=== PATIENT | female | born 1980 | race Caucasian/White ===

== ENCOUNTER 2017-06-14 17:44 | Emergency (ER) | payer OTHER ==
[~2017-06-14] VITALS: Ht 167.6 cm; Wt 59.1 kg
[~2017-06-14 17:44] MED LIST: NUVARING VAGIN1 EACH VG
== END 2017-06-14 20:35 ==
LOC: EDMED 17:44
DX: G43.909 Migraine, unspecified, not intractable, without status migrainosus (principal)
CPT/HCPCS: J1200; J1885; J2765; J7030